=== PATIENT | female | born 1990 | race Caucasian/White ===

== ENCOUNTER 2016-10-29 04:21 | Inpatient (IN) | payer OTHER ==
[2016-10-29] MEDS ORDERED: Sodium Chloride 0.9% 2.5 ML Syringe FLUSH PRN (06:52)
[2016-10-29] MEDS ORDERED: Misoprostol 200 MCG Tab PO PRN (06:52)
[2016-10-29] MEDS ORDERED: Methylergonovine 0.2 MG/1 ML Amp IM PRN (06:52)
[2016-10-29] MEDS ORDERED: Lidocaine 1% 50 ML MDV INJECT PRN (06:52)
[2016-10-29] MEDS ORDERED: Butorphanol 1 MG/ML SDV IVPUSH PRN (06:52)
[2016-10-29] MEDS ORDERED: Sodium Chloride 0.9% 10 ML Syringe FLUSH PRN (06:52)
[2016-10-29] MEDS ORDERED: Nalbuphine 10 MG/1 ML Vial IVPUSH PRN (06:52)
[2016-10-29] MEDS ORDERED: Carboprost Tromethamine 250 MCG/1 ML Amp IM PRN (06:52)
[2016-10-29] MEDS ORDERED: Water For Irrigation,Sterile 1,000 ML Container IRR PRN (06:52)
[2016-10-29] MEDS ORDERED: Oxytocin/Lactated Ringers 30 UNIT/500 ML BAG IV SCH (07:00)
[2016-10-29] MEDS: Lactated Ringers 1,000 ML IV SCH ×3 (07:28→11:14)
[2016-10-29] MEDS ORDERED: Ropivacaine HCl/PF 0 ML ONE (07:40)
[2016-10-29] MEDS ORDERED: Ropivacaine 0.2% 2 MG/ML 100 ML Bag EPIDUR ONE (07:40)
[2016-10-29] MEDS ORDERED: fentaNYL 100 MCG/2 ML SDV ONE ×2 (07:40→10:34)
--- NOTE | 2016-10-29 07:43 | PCM.PREANE ---
Preanesthetic Assessment - Anesthesia/Transfusion/Family Hx Anesthesia History: Prior Anesthesia Without Reaction Transfusion History: No Prior Transfusion(s) - Review of Systems General: No Symptoms Pulmonary: No Symptoms Cardiovascular: No Symptoms Gastrointestinal: No Symptoms Neurological: No Symptoms Other: Reports: None - Physical Assessment Height: 5 ft 2 in Weight: 102.512 kg ASA Class: 2 Mental Status: Alert & Oriented x3 Airway Class: Mallampati = 2 Dentition: Reports: Normal Dentition Thyro-Mental Finger Breadths: 3 Mouth Opening Finger Breadths: 3 ROM/Head Extension: Full Lungs: Clear to Auscultation, Normal Respiratory Effort Cardiovascular: Regular Rate, Regular Rhythm - Lab Values: Laboratory Last Values WBC 9.06 K/uL (4.0-11.0) 10/29/16 07:25 RBC 4.36 M/uL (4.30-5.90) 10/29/16 07:25 Hgb 13.5 g/dL (12.0-16.0) 10/29/16 07:25 Hct 38.9 % (36.0-46.0) 10/29/16 07:25 MCV 89.2 fL (80.0-98.0) 10/29/16 07:25 MCH 31.0 pg (27.0-32.0) 10/29/16 07:25 MCHC 34.7 g/dL (31.0-37.0) 10/29/16 07:25 RDW Std Deviation 45.0 fl (28.0-62.0) 10/29/16 07:25 RDW Coeff of [place] 14 % (11.0-15.0) 10/29/16 07:25 Plt Count 149 K/uL (150-400) L 10/29/16 07:25 MPV 10.40 fL (7.40-12.00) 10/29/16 07:25 Nucleated RBC % 0.0 /100WBC 10/29/16 07:25 Nucleated RBCs # 0 K/uL 10/29/16 07:25 - Allergies Allergies/Adverse Reactions: Allergies Allergy/AdvReac Type Severity Reaction Status Date / Time No Known Allergies Allergy Verified 08/05/16 15:42 - Acknowledgements Anesthesia Type Planned: Epidural Pt an Appropriate Candidate for the Planned Anesthesia: Yes Alternatives and Risks of Anesthesia Discussed w Pt/Guardian: Yes Pt/Guardian Understands and Agrees with Anesthesia Plan: Yes PreAnesthesia Questionnaire HEENT History: Reports: None Cardiovascular History: Reports: None Respiratory History: Reports: None Gastrointestinal History: Reports: GERD Genitourinary History: Reports: None 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: : 2 Para: 1 LMP (Approximate): Musculoskeletal History: Reports: None Neurological History: Reports: None Psychiatric History: Reports: Depression Endocrine/Metabolic History: Reports: Diabetes, Gestational, Obesity/BMI 30+ Hematologic History: Reports: None Immunologic History: Reports: None Oncologic (Cancer) History: Reports: None Dermatologic History: Reports: None - Infectious Disease History Infectious Disease History: Reports: Chicken Pox - Past Surgical History HEENT Surgical History: Reports: Other (See Below) Other HEENT Surgeries/Procedures: wisdom teeth extraction - SUBSTANCE USE Smoking Status *Q: Former Smoker Tobacco Use Within Last Twelve Months: No Recreational Drug Use History: No - CURRENT (IN HOUSE) MEDS Current Meds: Current Medications Butorphanol Tartrate (Stadol) 1 mg IVPUSH Q1H PRN PRN Reason: Pain Carboprost Tromethamine (Hemabate Ds) 250 mcg IM ASDIRECTED PRN PRN Reason: Post Hemorrhage Lactated Ringer's (Ringers, Lactated) 1,000 mls @ 150 mls/hr IV ASDIRECTED [facility] Last Admin: 10/29/16 07:28 Dose: 999 mls/hr Oxytocin/Lactated Ringer's (Pitocin In Lr 30 Units/500 Ml) 30 unit in 500 mls @ 500 mls/hr IV TITRATE [id number] Stop: 10/29/16 07:59 Lidocaine HCl (Xylocaine 1%) 50 ml INJECT .ONCE PRN PRN Reason: Laceration repair Methylergonovine Maleate (Methergine) 0.2 mg IM ASDIRECTED PRN PRN Reason: Post Hemorrhage Misoprostol (Cytotec) 200 mcg PO .ONCE PRN PRN Reason: Post Hemorrhage Nalbuphine HCl (Nubain) 10 mg IVPUSH Q1H PRN PRN Reason: Pain (severe 7-10) Sodium Chloride (Saline Flush) 10 ml FLUSH ASDIRECTED PRN PRN Reason: Keep Vein Open Sodium Chloride (Saline Flush) 2.5 ml FLUSH ASDIRECTED PRN PRN Reason: Keep Vein Open Sterile Water (Sterile Water For Irrigation) 1,000 ml IRR ASDIRECTED PRN PRN Reason: delivery
[2016-10-29] MEDS ORDERED: Ropivacaine HCl/PF 100 ML ONE (10:35)
[2016-10-29] MEDS ORDERED: Oxytocin/Lactated Ringers 30 UNIT/500 ML BAG ONE (13:56)
[2016-10-29] MEDS ORDERED: Acetaminophen 500 MG Tab PO PRN ×2 (15:15)
[2016-10-29] MEDS ORDERED: Lanolin 100% Cream 7 GM Tube TOP PRN (15:15)
[2016-10-29] MEDS ORDERED: Bisacodyl 10 MG Supp RECTAL PRN (15:15)
[2016-10-29] MEDS ORDERED: Benzocaine/Menthol 20%-0.5% Spray 78 GM Cannister TOP PRN (15:15)
[2016-10-29] MEDS ORDERED: oxyCODONE 5 MG Tab PO PRN (15:15)
[2016-10-29] MEDS ORDERED: Docusate Sodium 100 MG Cap PO PRN (15:15)
[2016-10-29] MEDS ORDERED: Witch Hazel Medicated Pads 40/Jar TOP PRN (15:15)
[2016-10-29] MEDS ORDERED: Ibuprofen 400 MG Tab PO PRN (15:15)
[2016-10-29] MEDS: Ibuprofen 800 MG Tab PO PRN (18:22)
--- NOTE | 2016-10-29 23:52 | OR ---
SURGEON: Milady Travis MD DATE OF PROCEDURE: 10/29/2016 PREOPERATIVE DIAGNOSES: 1. Term at 38 weeks' and 6 days. 2. Spontaneous labor. 3. Gestational diabetes type A1. POSTOPERATIVE DIAGNOSES: 1. Term at 38 weeks' and 6 days. 2. Spontaneous labor. 3. Gestational diabetes type A1. 4. Delivered. PROCEDURE: 1. Spontaneous vaginal delivery. 2. Repair of 2nd degree Perineal laceration. ANESTHESIA: Epidural. ESTIMATED BLOOD LOSS: 250 mL. COMPLICATIONS: None. DISPOSITION: Mother and baby stable in Labor and Delivery room, [facility]. FINDINGS: Male infant, weight 3060 g, score 8 and 9 at 1 and 5 minutes respectively. Grossly normal placenta with three-vessel cord. Midline second-degree laceration. BRIEF HISTORY: Brandie is a 26-year-old G2, P1, who presented in the early hours of October 29 at 38 weeks' and 6 days gestation with complaints of regular contractions since midnight. She denied vaginal bleeding, leakage of fluid, and reported good movements. Her care was complicated by gestational diabetes, diet controlled. GBS status was negative. On admission, she was found to be 3-4 cm dilated, and with a Category 1 tracing, she was allowed to ambulate. She was re-examined 2 hours later and was found to be 5 cm dilated. She requested and received epidural at that time. Artificial rupture of membranes was performed four hours after her presenting to L/D, she was 6 cm at that time, clear amniotic fluid was noted.Within 3 hours of AROM, she became fully dilated and commenced active pushing. She remained euglycemic during the intrapartum period. heart tracing was mainly Category 1 alternating intermittently with Category 2. With commencement pushing, she pushed quite well with bringing the baby's head down to a +4 station, she was set up for delivery in a modified dorsal lithotomy position. PROCEDURE DETAILS: She had a spontaneous vaginal delivery of a male infant in direct occipital anterior position, clear amniotic fluid, tight nuchal cord x1, which was reduced easily after delivery of the infant's shoulders. The anterior and the posterior shoulders and the rest of the baby were delivered without difficulty. The baby was delivered onto the maternal abdomen in the presence of the attendant nursery nurse. Baby was vigorous and cried spontaneously at . With delivery of the infant , oxytocin infusion was commenced for active management of third stage of labor. Delayed cord clamping was performed and the cord was cut by the father of the baby. Cord blood and gas samples were obtained. The placenta was delivered by a controlled cord traction appeared to be complete and intact. Examination of the perineum revealed a midline second-degree laceration without an extension. It was repaired in 3 layers using 2-0 Vicryl. It was hemostatic post repair. Uterine massage was performed. The uterus was found to be well contracted.The patient tolerated the procedure well. Sponge, instrument, and needle counts were correct post delivery. ADUMVIV / MODL /[id number] BETH
[2016-10-30] MEDS: Ibuprofen 800 MG Tab PO PRN ×2 (06:48→12:57)
--- NOTE | 2016-10-30 11:47 | PCM.PNPP ---
- General Info Date of Service: 10/30/16 Functional Status: Reports: Pain Controlled, Tolerating Diet, Ambulating, Urinating - Review of Systems General: Denies: Fever, Weakness, Chills HEENT: Denies: Headaches Pulmonary: Denies: Shortness of Breath, Pleuritic Chest Pain Cardiovascular: Denies: Chest Pain, Palpitations, Dyspnea on Exertion Gastrointestinal: Denies: Abdominal Pain, Vomiting Genitourinary: Denies: Dysuria Neurological: Denies: Headache - General Info Date of Service: 10/30/16 - Patient Data Vital Signs - Most Recent: Last Vital Signs Temp 36.4 C 10/30/16 03:47 Pulse 77 10/30/16 03:47 Resp 16 10/30/16 03:47 BP 125/77 10/30/16 03:47 Pulse Ox 97 10/30/16 03:47 Weight - Most Recent: 226 lb I&O - Last 24 Hours: Intake & Output 10/29/16 10/30/16 10/30/16 22:59 06:59 14:59 Intake Total 500 Balance 500 Lab Results - Last 24 Hours: Laboratory Results - last 24 hr 10/29/16 10/29/16 10/30/16 Range/Units 12:02 14:01 05:55 Hgb 11.8 L (12.0-16.0) g/dL Hct 34.9 L (36.0-46.0) % POC Glucose 77 67 (60-110) mg/dL 10/30/16 Range/Units 07:16 Hgb (12.0-16.0) g/dL Hct (36.0-46.0) % POC Glucose 101 (60-110) mg/dL Med Orders - Current: Current Medications Acetaminophen (Tylenol Extra Strength) 500 mg PO Q4H PRN PRN Reason: Pain Acetaminophen (Tylenol Extra Strength) 1,000 mg PO Q4H PRN PRN Reason: Pain Last Admin: 10/29/16 23:14 Dose: 1,000 mg Benzocaine/Menthol (Dermoplast Pain Relief 20%-0.5% [place]) 78 gm TOP ASDIRECTED PRN PRN Reason: Perineal Comfort Measure Last Admin: 10/29/16 16:31 Dose: 1 canister Bisacodyl (Dulcolax) 10 mg RECTAL .ONCE PRN PRN Reason: Constipation Docusate Sodium (Colace) 100 mg PO BID PRN PRN Reason: Constipation Emollient Ointment (Lansinoh Hpa) 0 gm TOP ASDIRECTED PRN PRN Reason: Sore Nipples Last Admin: 10/29/16 16:31 Dose: 1 tube Ibuprofen (Motrin) 400 mg PO Q4H PRN PRN Reason: Pain Ibuprofen (Motrin) 800 mg PO Q6H PRN PRN Reason: Pain Last Admin: 10/30/16 06:48 Dose: 800 mg Oxycodone HCl (Oxycodone) 5 mg PO Q2H PRN PRN Reason: Pain Witch Jenny (Tucks) 1 pad TOP ASDIRECTED PRN PRN Reason: comfort care Last Admin: 10/29/16 16:30 Dose: 1 tub Discontinued Medications Butorphanol Tartrate (Stadol) 1 mg IVPUSH Q1H PRN PRN Reason: Pain Carboprost Tromethamine (Hemabate Ds) 250 mcg IM ASDIRECTED PRN PRN Reason: Post Hemorrhage Fentanyl (Sublimaze) Confirm Administered Dose 100 mcg .ROUTE .STK-MED ONE Stop: 10/29/16 07:41 Fentanyl (Sublimaze) Confirm Administered Dose 100 mcg .ROUTE .STK-MED ONE Stop: 10/29/16 10:35 Lactated Ringer's (Ringers, Lactated) 1,000 mls @ 150 mls/hr IV ASDIRECTED [facility] Last Admin: 10/29/16 11:14 Dose: 150 mls/hr Oxytocin/Lactated Ringer's (Pitocin In Lr 30 Units/500 Ml) 30 unit in 500 mls @ 500 mls/hr IV TITRATE [facility] Stop: 10/29/16 07:59 Last Admin: 10/29/16 14:49 Dose: 500 mls/hr Ropivacaine (Naropin 0.2%) Confirm Administered Dose 0 mls @ as directed .ROUTE .STK-MED ONE Stop: 10/29/16 07:41 Ropivacaine (Naropin 0.2%) Confirm Administered Dose 100 mls @ as directed .ROUTE .STK-MED ONE Stop: 10/29/16 10:36 Oxytocin/Lactated Ringer's (Pitocin In Lr 30 Units/500 Ml) Confirm Administered Dose 30 unit in 500 mls @ as directed .ROUTE .STK-MED ONE Stop: 10/29/16 13:57 Lidocaine HCl (Xylocaine 1%) 50 ml INJECT .ONCE PRN PRN Reason: Laceration repair Methylergonovine Maleate (Methergine) 0.2 mg IM ASDIRECTED PRN PRN Reason: Post Hemorrhage Misoprostol (Cytotec) 200 mcg PO .ONCE PRN PRN Reason: Post Hemorrhage Nalbuphine HCl (Nubain) 10 mg IVPUSH Q1H PRN PRN Reason: Pain (severe 7-10) Ropivacaine (Naropin 0.2%) 0 mg EPIDUR .STK-MED ONE Stop: 10/29/16 07:41 Sodium Chloride (Saline Flush) 10 ml FLUSH ASDIRECTED PRN PRN Reason: Keep Vein Open Sodium Chloride (Saline Flush) 2.5 ml FLUSH ASDIRECTED PRN PRN Reason: Keep Vein Open Sterile Water (Sterile Water For Irrigation) 1,000 ml IRR ASDIRECTED PRN PRN Reason: delivery Last Admin: 10/29/16 14:40 Dose: 1,000 ml - Infant Interaction Disposition, : in Room with Family Interaction: Holding Feeding: Attempted ; Nursed Fair/Poor (supplementing with formulae), Continues to Breastfeed, Encouraged to Breastfeed Support Person: - Recovery Exam Fundal Tone: Firm Fundal Level: 1 Fingerbreadths Below Umbilicus Fundal Placement: Midline Lochia Amount: Scant Lochia Color: Rubra/Red Perineum Description: Other (see below) Other Perinuem Description: 2nd degree laceration Episiotomy/Laceration: Approximated Bladder Status: Voiding Urinary Elimination: Voided - Exam General: Alert, Oriented HEENT: Pupils Equal Lungs: Clear to Auscultation, Normal Respiratory Effort Cardiovascular: Regular Rate, Regular Rhythm GI/Abdominal Exam: Soft Extremities: Non-Tender, Pedal Edema Skin: Warm Psy/Mental Status: Alert, Normal Affect, Normal Mood - Problem List & Annotations (1) Vaginal delivery SNOMED Code(s): 478453228 Code(s): O80 - ENCOUNTER FOR FULL-TERM UNCOMPLICATED DELIVERY Status: Acute Current Visit: Yes (2) Gestational diabetes mellitus (GDM) SNOMED Code(s): 46061177 Code(s): O24.419 - GESTATIONAL DIABETES MELLITUS IN , UNSP CONTROL Status: Acute Current Visit: Yes - Problem List Review Problem List Initiated/Reviewed/Updated: Yes - My Orders Last 24 Hours: My Active Orders 10/29/16 15:15 Patient Status [ADT] Routine Blood Glucose Check, Bedside [RC] AMPROC May Shower [RC] ASDIRECTED Up ad [place] [RC] ASDIRECTED Vital Signs [RC] PER UNIT ROUTINE Acetaminophen [Tylenol Extra Strength] 1,000 mg PO Q4H PRN Acetaminophen [Tylenol Extra Strength] 500 mg PO Q4H PRN Benzocaine/Menthol [Dermoplast Pain Relief 20%-0.5% [place]] 78 gm TOP ASDIRECTED PRN Bisacodyl [Dulcolax] 10 mg RECTAL .ONCE PRN Docusate Sodium [Colace] 100 mg PO BID PRN Ibuprofen [Motrin] 400 mg PO Q4H PRN Ibuprofen [Motrin] 800 mg PO Q6H PRN Lanolin [Lansinoh HPA] See Dose Instructions TOP ASDIRECTED PRN Witch Jenny [Tucks] 1 pad TOP ASDIRECTED PRN oxyCODONE 5 mg PO Q2H PRN Assess Lochia [WOMSER] Per Unit Routine Assess Uterine Involution [WOMSER] Per Unit Routine Breast Pump [WOMSER] Per Unit Routine Perineal Care [OM.PC] Per Unit Routine Peripheral IV Discontinue [OM.PC] Routine Resuscitation Status Routine 10/29/16 Dinner Regular Diet [DIET] - Assessment Assessment:: PPD#1 s/p , doing well Minimal lochia. Afterpain controlled with simple analgesia. Clinically stable to be discharge today - Plan Plan:: Discharge instructions reviewed Nothing in the vagina for 6 weeks Bleeding and infection control discussed mood swings/signs of depression discussed Continue PNV OTC meds for pain Follow up in 6 weeks. Will get 2hr GTT at visit
[2016-10-30 20:46] VITALS: BP 111/70
== END 2016-10-30 19:00 | disposition home or self-care (01) | DRG 775 ==
LOC: MW.OBCHECK 04:21 → MW.OB 04:25 → MW.OBCHECK 06:52 → OBSVTOIN 06:52 → MW.OB 06:52
PROVIDERS: ADMIT Obstetrics & Gynecology; ATTEND Obstetrics & Gynecology
PROC: 10E0XZZ Delivery of Products of Conception, External Approach (ICD-10-PCS; principal; 2016-10-29)
PROC: 0KQM0ZZ Repair Perineum Muscle, Open Approach (ICD-10-PCS; 2016-10-29)
PROC: 10907ZC Drainage of Amniotic Fluid, Therapeutic from Products of Conception, Via Natural or Artificial Opening (ICD-10-PCS; 2016-10-29)
DX: O24.420 Gestational diabetes mellitus in childbirth, diet controlled (principal); O70.1 Second degree perineal laceration during delivery; O69.1XX0 Labor and delivery complicated by cord around neck, with compression, not applicable or unspecified; Z3A.38 38 weeks gestation of pregnancy; Z37.0 Single live birth
CPT/HCPCS: 36415; 51703; 59025; 82962; 85014; 85018; 85027; 86850; 86900; 86901; 88307; A9270-GY; J2795; J3010; J7120